=== PATIENT | male | born 1945 | race Caucasian/White ===

== ENCOUNTER 2022-09-15 20:07 | Emergency (ER) | payer MEDICARE, OTHER ==
[~2022-09-15] VITALS: Ht 172.7 cm; Wt 59.0 kg
[~2022-09-15 20:07] MED LIST: AMOCLA875 PO; ASCO500 PO; ASPI325 PO; CEPH500 PO; CIPDEXSU LEFTEAR; CIPR500 PO; DOCU100 PO; FINA5 PO; GABA300 PO; HYDACE5 PO; Hair, Skin & N1 EACH PO; MAGOXI400 PO; OSTERA TABLET1 EACH PO; OXYACE5C PO; OXYCODONE HCL PO; Omeprazole20 M1 PO; ROXICODONE5 MG PO; RXHYD5325 PO; SUCR1 PO; TAMS.4ER PO
[2022-09-16 01:19] LABS: Source, Urine Clean Catch
[2022-09-16 01:21] LABS: Bilirubin, Urine Neg (Neg); Blood, Urine 4+ (Neg); Glucose Qualitative, Urine Neg (Neg); Ketones, Urine Neg (Neg); Leukocyte Esterase, Urine 3+ (Neg); Nitrite, Urine Neg (Neg); Protein, Urine 3+ (Neg); Urobilinogen, Urine NORM (Normal)
[2022-09-16 01:43] LABS: Appearance, Urine Cloudy (Clear); Color, Urine Yellow (P-Yellow)
[2022-09-16 01:44] LABS: Bacteria Many /hpf; Squamous Epithelial Cells Not Seen /hpf (Few); White Blood Cells, Urine TNTC /hpf (0-5)
[2022-09-16 01:56] LABS: BASOPHILS ABSOLUTE AUTO 0.04 K/mm3 (0.00-0.23); BASOPHILS PERCENT AUTO 1 % (0-2); EOSINOPHILS ABSOLUTE AUTO 0.05 K/mm3 (0.00-0.68); EOSINOPHILS PERCENT AUTO 1 % (0-6); Hematocrit 36.1 % (37.0-53.0); Hemoglobin 11.5 g/dL (13.5-17.5); IMMATURE GRAN ABSOLUTE AUTO 0.04 K/mm3 (0.00-0.10); IMMATURE GRAN PERCENT AUTO 1 % (0-1); LYMPHOCYTES PERCENT AUTO 9 % (21-46); MONOCYTES ABSOLUTE AUTO 0.55 K/mm3 (0.16-1.47); MONOCYTES PERCENT AUTO 7 % (4-13); Mean Corpuscular HGB 26.4 pg (26.0-34.0); Mean Corpuscular HGB Conc 31.9 g/dL (31.5-36.5); Mean Corpuscular Volume 83 fL (80-100); Mean Platelet Volume 8.6 fL (9.1-12.4); NEUTROPHILS PERCENT AUTO 82 % (41-73); Platelet Count 295 K/mm3 (150-400); RDW Coefficient Variation 14.4 % (11.7-14.2); RDW Standard Deviation 43.5 fL (35.1-46.3); Red Blood Cell Count 4.35 M/mm3 (4.30-5.90); White Blood Cell Count 7.48 K/mm3 (4.00-11.30)
[2022-09-16 02:00] VITALS: BP 155/71
[2022-09-16 02:14] LABS: Albumin, Blood 2.8 g/dL (3.4-5.0); Albumin/Globulin Ratio 0.5 (0.8-1.8); Bilirubin, Total 0.4 mg/dL (0.1-1.0); Bun/Creatinine Ratio 29.2 (12.0-20.0); Creatinine, Blood 1.06 mg/dL (0.60-1.20); Globulin, Blood 5.5 g/dL (2.2-4.0); Potassium, Blood 2.8 mmol/L (3.5-5.5); Total Protein, Blood 8.3 g/dL (6.4-8.2)
== END 2022-09-16 04:44 | disposition short-term general hospital (02) ==
LOC: ER 20:07
PROVIDERS: Student in an Organized Health Care Education/Training Program
DX: S16.1XXA Strain of muscle, fascia and tendon at neck level, initial encounter (principal); M54.9 Dorsalgia, unspecified; G89.29 Other chronic pain; W19.XXXA Unspecified fall, initial encounter; Z91.040 Latex allergy status; Z91.012 Allergy to eggs; Z88.2 Allergy status to sulfonamides; Z91.018 Allergy to other foods; Z88.0 Allergy status to penicillin; Z88.8 Allergy status to other drugs, medicaments and biological substances; Z87.891 Personal history of nicotine dependence
CPT/HCPCS: 36415; 51702; 51798; 72125; 72128; 72131; 80053; 81001; 85025; 87077; 87086; 87186; 96374-59; 96376-59; 99285-25; A9270; J1170

== ENCOUNTER 2023-04-13 16:55 | Emergency (ER) | payer MEDICARE, OTHER ==
[~2023-04-13] VITALS: Ht 160 cm; Wt 63.5 kg
[2023-04-13 17:22] VITALS: BP 150/80
[2023-04-13 18:06] LABS: Albumin/Globulin Ratio 0.6 (0.8-1.8); Bilirubin, Total 0.3 mg/dL (0.1-1.0); Bun/Creatinine Ratio 30.8 (12.0-20.0); Calcium, Blood 8.7 mg/dL (8.5-10.1); Creatinine, Blood 0.81 mg/dL (0.60-1.20); Globulin, Blood 5.2 g/dL (2.2-4.0); Potassium, Blood 4.5 mmol/L (3.5-5.5); Total Protein, Blood 8.2 g/dL (6.4-8.2)
[2023-04-13] MEDS ORDERED: PAXLOVID 150-11 EACH PO (18:23)
== END 2023-04-13 20:19 | disposition home or self-care (01) ==
LOC: ER 16:55
PROVIDERS: Student in an Organized Health Care Education/Training Program
DX: U07.1 COVID-19 (principal); Z87.891 Personal history of nicotine dependence; Z79.899 Other long term (current) drug therapy; Z88.6 Allergy status to analgesic agent; Z91.012 Allergy to eggs; Z91.040 Latex allergy status; Z88.0 Allergy status to penicillin; Z88.2 Allergy status to sulfonamides; Z91.018 Allergy to other foods; Z88.4 Allergy status to anesthetic agent
CPT/HCPCS: 80053; 99283

== ENCOUNTER → 2023-04-29 | Outpatient (CLI) | payer MEDICARE, OTHER ==
[~2023-04-29] MED LIST changes: +PAXLOVID 150-11 EACH PO
== END | disposition home or self-care (01) ==
LOC: PLD 12:44 → LAB SHORT 12:44
DX: L57.0 Actinic keratosis (principal)
CPT/HCPCS: 88305

== ENCOUNTER 2023-07-31 14:57 | Emergency (ER) | payer MEDICARE, OTHER ==
[~2023-07-31] VITALS: Ht 172.7 cm; Wt 59.0 kg
[2023-07-31] MEDS ORDERED: PREGABALIN100 MG PO (17:04)
[2023-07-31] MEDS ORDERED: Lidocaine 2%-Epineph 1:100000 20 ML MDV INJ ONE (17:15)
[2023-07-31] MEDS ORDERED: Silver Nitr/Potassium Nitrate 1 EA APPL TOP ONE (17:30)
[2023-07-31] MEDS ORDERED: OxyCODONE HCL 5 MG TAB PO ONE (18:25)
[2023-07-31 19:00] VITALS: BP 152/87
== END 2023-07-31 20:15 | disposition home or self-care (01) ==
LOC: ER 14:57
DX: K13.79 Other lesions of oral mucosa (principal); Z88.0 Allergy status to penicillin; Z88.2 Allergy status to sulfonamides; Z88.6 Allergy status to analgesic agent; Z91.018 Allergy to other foods; Z91.012 Allergy to eggs; Z91.040 Latex allergy status
CPT/HCPCS: 99283; A9270

== ENCOUNTER 2024-08-12 08:18 | Day surgery (SDC) | payer MEDICARE, OTHER ==
[~2024-08-12] VITALS: Ht 170.2 cm; Wt 54.0 kg
[~2024-08-12 08:18] MED LIST changes: +PREGABALIN100 MG PO
[2024-08-12] MEDS ORDERED: ATOR40TA PO (08:48)
[2024-08-12] MEDS ORDERED: CLEARCANAL EARW15 ML (08:48)
[2024-08-12] MEDS ORDERED: IBUP600 PO (08:49)
[2024-08-12] MEDS ORDERED: Adult Glycerin1 EACH PR (08:49)
[2024-08-12] MEDS ORDERED: MIRALAX17 GM PO (08:49)
[2024-08-12] MEDS ORDERED: MULVITA PO (08:50)
[2024-08-12 08:52] VITALS: BP 176/89
[2024-08-12 09:00] VITALS: BP 159/105
[2024-08-12] MEDS ORDERED: NS 1,000 ML IV ONE (09:00)
[2024-08-12 09:04] VITALS: BP 176/89
[2024-08-12] MEDS ORDERED: NS 250 ML IV ONE (09:17)
[2024-08-12] MEDS ORDERED: FentaNYL Citrate 50 MCG/ML 2 ML Injection ONE (09:40)
[2024-08-12] MEDS ORDERED: Midazolam HCl 1MG / ML 2ML Vial ONE (09:40)
[2024-08-12] MEDS ORDERED: Vancomycin HCl 1000 MG ADDvantage ONE (09:59)
[2024-08-12] MEDS ORDERED: NS 100 ML IV ONE (10:00)
--- NOTE | 2024-08-12 10:32 | NUR ---
PT BACK TO RECOVERY ROOM. PT ALERT AND ORIENTED. VIVIENNE DODSON. VSS.
[2024-08-12 10:45] VITALS: BP 153/79
[2024-08-12 11:00] VITALS: BP 150/85
--- NOTE | 2024-08-12 11:40 | NUR ---
REPORT TO CRISTOFER SAWYER. IV D/C CATHETER INTACT. SUPRAPUBIC ATTACTED TO LEG. ASSISTED IN PT GETTING DRESSED AND INTO WHEELCHAIR. PT PICKED UP BY [facility] IN DEPT.
== END 2024-08-12 11:35 | disposition home or self-care (01) ==
LOC: MHTC 08:18
DX: N13.8 Other obstructive and reflux uropathy (principal); N13.30 Unspecified hydronephrosis; Z87.891 Personal history of nicotine dependence; Z88.0 Allergy status to penicillin; Z88.6 Allergy status to analgesic agent; Z91.040 Latex allergy status; Z88.4 Allergy status to anesthetic agent
CPT/HCPCS: 51102; 76937; 77002; 99152; 99153; C1729; C1769; J2250; J3010; J3370; J7030; J7050; Q9967

== ENCOUNTER 2024-08-14 07:47 | Emergency (ER) | payer MEDICARE, OTHER ==
[~2024-08-14] VITALS: Ht 182.9 cm; Wt 83.9 kg
[~2024-08-14 07:47] MED LIST changes: +ATOR40TA PO; +Adult Glycerin1 EACH PR; +CLEARCANAL EARW15 ML; +IBUP600 PO; +MIRALAX17 GM PO; +MULVITA PO
[2024-08-14] MEDS ORDERED: Ondansetron HCl 2 MG / ML 2ML Vial IV ONE (09:05)
[2024-08-14] MEDS ORDERED: LORazepam 2 MG/ML 1ML Injection IV ONE (09:05)
[2024-08-14 09:21] LABS: BASOPHILS ABSOLUTE AUTO 0.04 K/mm3 (0.00-0.23); BASOPHILS PERCENT AUTO 0 % (0-2); EOSINOPHILS ABSOLUTE AUTO 0.09 K/mm3 (0.00-0.68); EOSINOPHILS PERCENT AUTO 1 % (0-6); Hemoglobin 15.5 g/dL (13.5-17.5); IMMATURE GRAN ABSOLUTE AUTO 0.07 K/mm3 (0.00-0.10); IMMATURE GRAN PERCENT AUTO 1 % (0-1); LYMPHOCYTES ABSOLUTE AUTO 2.08 K/mm3 (0.84-5.20); LYMPHOCYTES PERCENT AUTO 14 % (21-46); MONOCYTES ABSOLUTE AUTO 0.93 K/mm3 (0.16-1.47); MONOCYTES PERCENT AUTO 6 % (4-13); Mean Corpuscular HGB 29.4 pg (26.0-34.0); Mean Corpuscular HGB Conc 33.7 g/dL (31.5-36.5); Mean Corpuscular Volume 87 fL (80-100); Mean Platelet Volume 9.8 fL (9.1-12.4); NEUTROPHILS ABSOLUTE AUTO 11.98 K/mm3 (1.96-9.15); NEUTROPHILS PERCENT AUTO 79 % (41-73); Platelet Count 252 K/mm3 (150-400); RDW Coefficient Variation 13.8 % (11.7-14.2); RDW Standard Deviation 44.1 fL (35.1-46.3); Red Blood Cell Count 5.28 M/mm3 (4.30-5.90); White Blood Cell Count 15.19 K/mm3 (4.00-11.30)
[2024-08-14] MEDS ORDERED: levETIRAcetam 2,000 MG in NS 100 ML IV ONE (09:25)
[2024-08-14 09:45] LABS: Albumin, Blood 3.1 g/dL (3.4-5.0); Albumin/Globulin Ratio 0.6 (0.8-1.8); Bilirubin, Total 0.8 mg/dL (0.1-1.0); Calcium, Blood 8.8 mg/dL (8.5-10.1); Creatinine, Blood 0.79 mg/dL (0.60-1.20); Globulin, Blood 4.9 g/dL (2.2-4.0); Magnesium, Blood 2.3 mg/dL (1.6-2.4)
[2024-08-14] MEDS ORDERED: NS 1,000 ML IV SCH (09:45)
[2024-08-14 11:31] VITALS: BP 171/85
== END 2024-08-14 11:59 | disposition other institution (70) ==
LOC: ER 07:47
PROVIDERS: Emergency Medicine
DX: I61.9 Nontraumatic intracerebral hemorrhage, unspecified (principal); R56.9 Unspecified convulsions; Z87.891 Personal history of nicotine dependence; Z88.6 Allergy status to analgesic agent; Z91.012 Allergy to eggs; Z91.040 Latex allergy status; Z91.018 Allergy to other foods; Z88.0 Allergy status to penicillin; Z88.2 Allergy status to sulfonamides; Z88.4 Allergy status to anesthetic agent; Z79.899 Other long term (current) drug therapy; Z79.02 Long term (current) use of antithrombotics/antiplatelets; Z79.84 Long term (current) use of oral hypoglycemic drugs; Z91.048 Other nonmedicinal substance allergy status; Z79.1 Long term (current) use of non-steroidal anti-inflammatories (NSAID); Z79.891 Long term (current) use of opiate analgesic
CPT/HCPCS: 70450; 80053; 82947; 83605; 83690; 83735; 84484; 85025; 93005; 93010; 96365; 96375; 99285-25; J1953; J2060; J2405; J7030

== ENCOUNTER 2024-08-22 02:13 | Emergency (ER) | payer MEDICARE, OTHER ==
[~2024-08-22] VITALS: Ht 170.2 cm; Wt 59.0 kg
[2024-08-22] MEDS ORDERED: TraMADol HCl 50 MG Tab PO ONE (05:35)
[2024-08-22 06:00] VITALS: BP 129/76
== END 2024-08-22 09:25 | disposition home or self-care (01) ==
LOC: ER 02:13
DX: S09.90XA Unspecified injury of head, initial encounter (principal); Z88.8 Allergy status to other drugs, medicaments and biological substances; Z91.012 Allergy to eggs; Z91.040 Latex allergy status; Z88.2 Allergy status to sulfonamides; Z88.0 Allergy status to penicillin; Z91.018 Allergy to other foods; Z79.1 Long term (current) use of non-steroidal anti-inflammatories (NSAID); Z79.899 Other long term (current) drug therapy; Z87.891 Personal history of nicotine dependence; W18.30XA Fall on same level, unspecified, initial encounter
CPT/HCPCS: 70450; 72125; 99284-25; A9270